=== PATIENT | female | born 1950 | race Caucasian/White ===

== ENCOUNTER 2017-01-30 19:41 | Emergency (ER) | payer MEDICARE, MEDICAID ==
[~2017-01-30] VITALS: Ht 154.9 cm; Wt 94.8 kg
[~2017-01-30 19:41] MED LIST: ARTIFICIAL TEAR15 M1 EYEBOTH; ATIVAN0.5 MG PO; BENADRYL25 MG PO; BYSTOLIC2.5 MG PO; CALCIUM600 MG PO; CALMOSEPTINE OI71 GM TOP; CLOBETASOL PROP15 GM TOP; COLESTID1 GM PO; CORTIZONE-1057 G1 TOP; CYMBALTA60 M1 PO; CYMBALTA60 MG PO; DEMADEX10 MG PO; EPIPEN0.3 MG/0.3 IM; EPIPEN0.3 MG/0.3 SUBCUT; FERROUS SULFAT325 M1 PO; FOLIC ACID0.4 MG PO; HYDROCHLOROTHIA25 MG PO; IMODIUM2 MG PO; INDERAL40 MG PO; KLOR-CON M1010 MEQ PO; KLOR-CON M2020 MEQ PO; LAMISIL250 MG PO; LANTUS100 UNIT/1 SUBCUT; LEVAQUIN750 MG PO; LOMOTIL 0.025-21 TAB PO; LOTRIMIN AF28.35 GM TOP; LOTRISONE15 GM TOP; LUNESTA1 MG PO; MORPHINE SULFAT15 MG PO; MYRBETRIQ50 MG PO; NEURONTIN300 MG PO; NORCO 325-5 MG1 TAB PO; NORVASC2.5 MG PO; NOVOLOG FL100 UNIT/1 SUBCUT; PERCOCET 325-51 TAB PO; PHENERGAN25 M1 PO; PRAMIPEXOLE DIHY1 MG PO; PROBIOTIC1 EAC1 PO; PROCTOZONE-HC30 GM RECTAL; PROLIA60 MG/1 ML SUBCUT; PROMETHAZINE12.5 M1 PO; PROVENTIL2.5 MG/3 M INH; ROXICODONE15 MG PO; ROXICODONE5 MG PO; SEROQUEL200 MG PO; SEROQUEL25 MG PO; SEROQUEL50 MG PO; SINEMET 25-1001 TAB PO; SYNTHROID50 MCG PO; THERA M PLUS T1 EACH PO; TRIAMCINOLONE A15 GM TOP; TYLENOL325 MG PO; ULTRAM50 MG PO; VIBRAMYCIN100 MG PO; VITAMIN B-1000 MCG/1 SUBCUT; VITAMIN B-121000 MCG SUBCUT; VITAMIN D-32000 UNIT PO; XALATAN 0.005%2.5 ML EYEBOTH; XARELTO10 MG PO; XIFAXAN200 MG PO; ZANTAC300 MG PO; ZOFRAN ODT4 MG PO
== END 2017-01-30 22:05 | disposition short-term general hospital (02) ==
LOC: ER 19:41
DX: R11.2 Nausea with vomiting, unspecified (principal); R42 Dizziness and giddiness
CPT/HCPCS: A9150; J2405

== ENCOUNTER → 2017-02-01 | Outpatient (CLI) | payer MEDICARE, MEDICAID | END | disposition short-term general hospital (02) | LOC: CLNEUR 01-24 11:44 | DX: G25.81 Restless legs syndrome (principal); E61.1 Iron deficiency; E11.40 Type 2 diabetes mellitus with diabetic neuropathy, unspecified; F41.9 Anxiety disorder, unspecified ==

== ENCOUNTER → 2017-03-08 | Outpatient (CLI) | payer MEDICARE, MEDICAID | END | disposition short-term general hospital (02) | LOC: CLORTH 07:30 | DX: Z47.1 Aftercare following joint replacement surgery (principal); M25.511 Pain in right shoulder; Z96.611 Presence of right artificial shoulder joint ==

== ENCOUNTER → 2017-04-03 | Outpatient (CLI) | payer MEDICARE, MEDICAID | END | disposition short-term general hospital (02) | LOC: CLONCO 11:51 | DX: R53.82 Chronic fatigue, unspecified (principal) ==

== ENCOUNTER → 2017-05-17 | Outpatient (CLI) | payer MEDICARE, MEDICAID | END | disposition short-term general hospital (02) | LOC: CLORTH 04-19 12:35 | DX: Z47.1 Aftercare following joint replacement surgery (principal); Z96.611 Presence of right artificial shoulder joint ==